=== PATIENT | female | born 1970 | race Caucasian/White ===

== ENCOUNTER 2016-12-09 06:38 | Inpatient (IN) | payer OTHER ==
[~2016-12-09] VITALS: Ht 162.6 cm; Wt 98.9 kg
[2016-12-29] MEDS ORDERED: ARMOUR THYROID60 MG PO (12:10)
--- NOTE | 2017-01-06 10:30 | NUR ---
PT IN BED ALERT, ORIENTED AND SUPPORTED BY MOTHER AND DAUGHTER. PT IS VISIBLY ANXIOUS ABOUT TODAY. WE DISCUSSED AND OUTLINED TODAY FOR HER AND FAMILY. PT REQUESTED PRAYER, WILL FOLLOW NEEDED
--- NOTE | 2017-01-06 12:26 | NUR ---
01/06/17 1226 Ching Jack 1221-PATIENT ARRIVED TO PACU ON 8L MASK O2 [address] 96% PATIENT REACTIVE OPENS EYES AND MOVES HAND. FALLS BACK ASLEEP. ST. 3 TROCAR SITES TO ABDOMEN CDI. PACKING IN VAGINA NO DRAINAGE.
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
--- NOTE | 2017-01-06 13:30 | NUR ---
ASSESSMENT COMP. PT DOZING. OXYGEN IN PLACE. GRAYSON DRAINING TO BEDSIDE BAG.
--- NOTE | 2017-01-06 14:30 | NUR ---
PT SLEEPING DEEPLY, SATS 89-90%. OXYGEN INCREASED TO 3 LITERS NC. SATS INCREASE TO 95-98%. PULSE OX REMAINS IN PLACE.
--- NOTE | 2017-01-06 15:15 | NUR ---
NEW LITER LR STARTED. IV SITE WNL. PT CON TO SLEEP. O2 SATS REMAIN ABOVER 95%
--- NOTE | 2017-01-06 16:00 | NUR ---
VSS. PT C/O VERTIGO. SOPE PATCH IN PLACE. JUDI HOUSTON AND SHIRIN WIGGINS CONTACTED, WILL GIVE MECLAZINE PO. ICE CHIPS PROVIDED UPON REQUEST.
--- NOTE | 2017-01-06 17:30 | NUR ---
PT STILL C/O VERTIGO. EMESIS WHEN SHE MOVED HER HEAD AND BECAME DIZZY. PHENERGAN GIVEN ORDERED. ENC TO TRY AND SLEEP
--- NOTE | 2017-01-06 18:30 | NUR ---
PT RESTS. DENIES NAUSEA UNLESS MOVING EYES/HEAD.
--- NOTE | 2017-01-06 20:58 | NUR ---
PT C/O DIZZINESS WHEN TURNING HEAD TO LEFT SIDE, UNABLE TO DANGLE AT THIS TIME. DENIES C/O PAIN. WAS ABLE TO EAT ICE CREAM.
--- NOTE | 2017-01-06 23:19 | NUR ---
IS given and instructed on use. Pt encouraged to cough and deep breath. voices no need for pain meds at this time.
--- NOTE | 2017-01-07 03:13 | NUR ---
stood at side of bed, tolerated activity well without c/o dizziness. back to bed, scd's replaced. jello given.
--- NOTE | 2017-01-07 05:14 | NUR ---
PT AWAKE STATES HER DIZZINESS IS GONE AND SHE "FEELS PRETTY GOOD" GRAYSON EMPTIED OF 100 ML FRANCISCA URINE. NURSE NOTIFIED OF URINE OUTPUT.
--- NOTE | 2017-01-07 07:35 | NUR ---
PT CARE ASSUMED. PT RESTING IN BED. BOLUS RUNNING INTO RIGHT HAND. PT DENIES PAIN AT THIS TIME.
--- NOTE | 2017-01-07 08:15 | OR ---
[facility] [address], [place] [address] Signed DATE OF PROCEDURE: 01/06/17 PREOPERATIVE DIAGNOSIS: Uterovaginal prolapse complete. POSTOPERATIVE DIAGNOSIS: Uterovaginal prolapse complete. PROCEDURES Total laparoscopic hysterectomy with bilateral salpingectomy, posterior repair and cystoscopy. SURGEON: Corby Grier MD. BUILDING TECH: Dr. Donaldson. ANESTHESIA: General. ESTIMATED BLOOD LOSS: 50 mL. SPECIMEN: Uterus and both fallopian tubes. DRAINS: Higuera to bladder. PACKING: Premarin soaked gauze in vagina. FINDINGS Cervix is closed. Uterus normal in size and shape with grade 2 prolapse. Normal tubes and ovaries bilateral. There were multiple omental adhesions to the anterior abdominal wall, spread out across the anterior abdominal wall, but all of these were above the area of the umbilicus. There was a grade 2 cystocele, minimal urethrocele and a grade 3 rectocele with good perineal body. COMPLICATIONS: None. DESCRIPTION OF PROCEDURE The patient was brought to the operating room, placed supine position. After adequate general anesthesia was obtained, was placed in dorsal lithotomy position, prepped and draped in usual sterile fashion. Higuera catheter was placed in the bladder and a weighted speculum was placed in the vagina and the anterior lip of the cervix grasped with an Allis clamp. Uterine cavity was sounded to 7 cm and cervix serially dilated to #6-Upper Sorbian dilator. The VCare uterine manipulator was then inserted in to the uterine cavity and the balloon filled with water. The Allis clamp was removed and the cervical cap slid up and around the cervix and the vaginal cuff slid up and against the cervical cap and Electronically Signed By: CORBY GRIER MD 01/07/17 0815 PATIENT NAME: RICHARD REY OPERATIVE REPORT DATE OF : 66 PHYSICIAN: CORBY GRIER MD REPORT #: [id number] REPORT IS CONFIDENTIAL AND NOT TO BE RELEASED WITHOUT AUTHORIZATION [facility] [address], [place] [address] to hold the cervical cap against the cervix. The weighted speculum was removed. Attention was then drawn to the abdomen. A small infraumbilical skin incision was made with a scalpel after injecting the area with 0.25% Marcaine with epinephrine. The subcutaneous tissue was dissected with Metzenbaum scissors until the fascia was identified, which was grasped with hemostats, elevated and nicked with Metzenbaum scissors and extended in transverse fashion using Metzenbaum scissors. Retention stitches of 0 Vicryl suture placed above and below the incision and then finger dissection used to open the muscle and peritoneum. The Devin cannula and sleeve entered the abdomen under direct visualization and the sleeve attached to the retention stitches. The blunt trocar was removed and laparoscope entered the abdomen under direct visualization. The above findings were noted. A small skin incision was made on the left side just below the level of the umbilicus after transilluminating the abdominal wall, making sure there were no bowel or pelvic structures in the abdomen in this area and after injecting the area with local anesthetic. A bladed 5 mm trocar and sleeve entered the abdomen under direct visualization. The trocar was r e moved and the blunt probe inserted on the right side again just below the level of the umbilicus. Abdominal wall was transilluminated. The area inside the abdomen was observed and noted to be free of any masses or adhesions and so a small skin incision was made after injecting a local, and a Veress needle with expandable sleeve was inserted into the abdomen under direct visualization. The Veress needle was removed in the 10 mm port with expandable. Trocar was placed through the expandable sleeve by gently stretching and opening the fascia, a 10 mm port was inserted into the abdomen. Trocar was removed and blunt probe inserted here also. The above findings were confirmed. The LigaSure [place] bipolar forceps were then brought in the operating field and the left fallopian tube was grasped, elevated, removed medially and the mesial salpinx cauterized and cut with the LigaSure forceps down the length of the tube and then across the tube removing the tube which was then pulled through the right lateral port. The upper uterine pedicle including the utero-ovarian ligament and the round ligament were cauterized in several places and cut then the broad ligament also cauterized and cut until the anterior and posterior leaves of the broad ligament could be identified. These were then separately cauterized and cut along the side of the uterus extending down to just before the cup, which could be seen through the vaginal wall and extending to the midline. This was done anteriorly and posteriorly exposing the uterine vessels. The vessels were cauterized in several places and cut and the paracervical tissue cauterized and cut freeing the tissue down to the vaginal wall on the left side. The right side was then done in similar fashion by grasping the fallopian tube, removing this medially and then cauterizing and cutting the mesosalpinx down along the length of the tube until the proximal tube could be cauterized and cut and the tube removed. The upper pedicle including the utero-ovarian ligament and round ligament were cauterized in several places and cut and then the anterior posterior leaves of the broad ligament cauterized and cut joining the previous dissection. The uterine vessels exposed Electronically Signed By: CORBY GRIER MD 01/07/17 0815 PATIENT NAME: RICHARD REY OPERATIVE REPORT DATE OF : 66 PHYSICIAN: CORBY GRIER MD REPORT #: [id number] REPORT IS CONFIDENTIAL AND NOT TO BE RELEASED WITHOUT AUTHORIZATION [facility] [address], [place] [address] Signed on this side were then cauterized in several places and cut and the paracervical tissue cauterized and cut. All of this was done inside the area of the cervical cap. With the vaginal wall free, the Sonicision was brought in the operating field and posterior vaginal wall was opened with the Sonicision in the groove of the cervical cap and midline posterior and extended up and around through the groove to the midline anterior. Sonicision was then used from the midline posterior to midline anterior the cervix and uterus. The VCare uterine manipulator and uterus were then pulled through the vaginal opening and sterile glove with lap inside was put in the vagina so that the abdomen could be re-insufflated. The entire pelvis was irrigated, suctioned, examined, and noted to have good hemostasis. The Endo-Stitch was then placed through t h e 10 mm right sleeve, and using barbed suture, the vaginal cuff was closed starting at the right uterosacral ligament and sewing posterior to anterior and sewing the posterior edge of the cuff and the anterior edge of the cuff separately with the 1st pass of the suture placed through the loop in the end of the barbed suture, and after each pass either anterior or posterior, this suture was tightened to help set the barbed to keep the incision closed. This was then carried across the cuff taking care to incorporate the vaginal mucosa, but not to take too much of the anterior or posterior tissue to avoid any bowel or bladder. This continued over to the left uterosacral ligament and then back toward the midline and 2 more stitches to help lock this in place. Laparoscopic suture scissors were then used to cut the stitch right at the tissues so that the barbed suture not be poking a bowel and the Endo-Stitch and needle removed. The entire pelvis was again irrigated, suctioned, examined and noted to have good hemostasis and good closure. At this point, the gas was allowed to escape. All instruments removed. The infraumbilical incision was closed using running stitch of 0 Vicryl suture. Two retention stitches were tied together for further support of the fascia. A finger was placed in the right lower quadrant incision and the fascia noted to be back together so that no stitch was needed in the right lower quadrant fascia. The 3 skin incisions were then closed using subcuticular stitches of 4-0 Vicryl suture. Attention was then drawn to the vagina. The vagina was inspected with elevation of the vaginal cuff and incorporating the uterosacral ligaments. The previous cystoceles seemed to be resolved, no descent. Even grasping the anterior vaginal mucosa and gently pulling did not bring the bladder down, so it was decided that the anterior repair was not necessary at this time, so cystoscopy was done. The patient was given fluorescein IV, Higuera catheter removed, and the cystoscope was placed in the urethra and entered the bladder under direct visualization. The bladder was inspected. No stitches or rents were seen in the bladder. Both ureteral orifices were identified and both showed good ejection of the yellow dye. The posterior bladder was also observed and there did not appear to be any defect or evidence of the cystocele from the bladder side either. At this point, the bladder was drained, cystoscope removed, and the Higuera catheter was placed back in the bladder. Electronically Signed By: CORBY GRIER MD 01/07/17 0815 PATIENT NAME: RICHARD REY OPERATIVE REPORT DATE OF : 66 PHYSICIAN: CORBY GRIER MD REPORT #: [id number] REPORT IS CONFIDENTIAL AND NOT TO BE RELEASED WITHOUT AUTHORIZATION [facility] [address], [place] [address] Signed Digital rectal exam was done and the distal portion of the rectocele identified and Catarina clamp placed in the midline incorporating the vaginal mucosa only at the apex of the rectocele. Two Allis clamps were placed, 1 on each side of the posterior introitus, and scalpel used to cut transverse incision right at the introitus and then perineal skin cut downward to the midportion of the perineal body creating a triangular flap of skin which was removed with Metzenbaum scissors. The midline vaginal mucosa was then underlined with Metzenbaum scissors and opened along the midline, and as this was opened, Allis clamps were used to grasp both edges of the vaginal mucosa. Incision was extended up to the previously placed Catarina clamp, which was then replaced with a long Allis clamp at the apex. Metzenbaum scissors and sponge were used to bluntly and sharply separate the perirectal tissue from the vaginal mucosa on each side. This was taken down on each side. With the vaginal mucosa gently pulled back, interrupted horizontal stitches of 0 Vicryl suture were placed starting at the apex and incorporating the thicker tissue on each side and placing several stitches along the length of the rectocele until reaching the introitus. With all the stitches in place, the stitches were then individually tied again starting at the apex and continuing proximal to the introitus. The vaginal mucosa was then trimmed and a running locking stitch of 2-0 Vicryl suture used to close the vaginal mucosa to the introitus. Two interrupted stitches of 0 Vicryl suture were then used to close the perineal body and the 2-0 Vicryl suture starting at the introitus used to make a subcutaneous stitch down to the apex of the perineal skin removal and then back up subcuticularly up to the introitus where the suture was tied. The vagina was inspected and noted to have good hemostasis, good closure. The rectocele was alleviated and again finger dissection used and there were no stitches or defects noted by palpation and no blood in the rectum. The rectovaginal tissue was thickened and flatter and the rectocele was resolved. At this point, the vagina was packed with Premarin infused gauze. The Higuera catheter left in place. The patient tolerated the procedure well, went to recovery room in good condition. The sponge, needle, instrument count correct in the procedure. Uterus and both fallopian tubes sent to pathology for identification. MD MAXIMUS Vuong/Modl /[id number] Electronically Signed By: CORBY GRIER MD 01/07/17 0815 PATIENT NAME: RICHARD REY OPERATIVE REPORT DATE OF : 66 PHYSICIAN: CORBY GRIER MD REPORT #: [id number] REPORT IS CONFIDENTIAL AND NOT TO BE RELEASED WITHOUT AUTHORIZATION [address] [address] Signed cc: Farshad Juares MD Electronically Signed By: CORBY GRIER MD 01/07/17 0815 PATIENT NAME: RICHARD REY OPERATIVE REPORT DATE OF : 66 PHYSICIAN: CORBY GRIER MD REPORT #: [id number] REPORT IS CONFIDENTIAL AND NOT TO BE RELEASED WITHOUT AUTHORIZATION
--- NOTE | 2017-01-07 09:39 | NUR ---
PATIENT TX FROM [facility] TO MED SURG ROOM 122. REPORT RECEIVED FROM BRAXTON HARPER AND PATIENT W/C TO THE FLOOR AND WAS ABLE TO AMBULATE, PATIENT IS STEADY ON HER FEET WITH NO C/O DIZZINESS OR NAUSEA. VITALS AND ASSESSMENT TAKEN.
--- NOTE | 2017-01-07 11:06 | NUR ---
PATIENT STARTING TO FEEL ABDOMINAL PRESSURE, COUGHED AND FELT LEAKING OF URINE, PATIENT BLADDER SCANNED FOR 80 MLS AT THIS TIME. PAIN AT THIS TIME AT A 4/10 PATIENT DIDN'T WANT TO TAKE PERCOCET DUE TO IT BEEING TOO STRONG SO JUDI CALLED AND ELIS GRESHAM ORDERED. DOCTOR UPDATED ON PATIENT AT THIS TIME.
--- NOTE | 2017-01-07 11:14 | NUR ---
PATIENT WANTED TO TAKE JUST 0.5MG OF A 5/325 NORCO AT THIS TIME. SHE IS SENSITIVE TO MEDICATION AND WANTS JUST PART OF THE TABLET.
--- NOTE | 2017-01-07 12:33 | NUR ---
PATIENT SITTING UP IN BED EATING LUNCH. NO C/O NAUSEA AT THIS TIME. PATIENTS PAIN DOWN TO A 2/10. PATIENT NOT ABLE TO VOID AT THIS TIME, WILL CONTINUE TO FOLLOW.
--- NOTE | 2017-01-07 13:24 | NUR ---
MED REC COMPLETE
--- NOTE | 2017-01-07 13:59 | NUR ---
PATIENT VOIDED 400 MLS OF CLEAR YELLOW URINE, PATIENT BLADDER SCANNED FOR 400 MLS OF URINE, PATIENT HAS NO URGE TO VOID AT THIS TIME.
[2017-01-07] MEDS ORDERED: NORCO 5-325 TA1 EACH PO (15:11)
[2017-01-07] MEDS ORDERED: IBUPROFEN800 MG PO (15:11)
--- NOTE | 2017-01-07 15:23 | NUR ---
PATIENT GIVEN D/C INSTRUCTIONS QUESTIONS ANSWERED AND PHARMACY WAS IN TO SPEAK TO THE PATIENT REGARDING D/C MEDICATION. IV DC'D TIP INTACT.
== END 2017-01-07 15:41 | disposition home or self-care (01) | DRG 743 ==
LOC: MS 01-06 06:45 → DSVR 01-06 07:00 → MS 01-06 08:30 → FBC 01-06 14:33 → MS 01-07 09:25
PROVIDERS: ADMIT General Practice
PROC: 0UT70ZZ Resection of Bilateral Fallopian Tubes, Open Approach (ICD-10-PCS; 2017-01-06)
PROC: 0JQC0ZZ Repair Pelvic Region Subcutaneous Tissue and Fascia, Open Approach (ICD-10-PCS; principal; 2017-01-06 08:30)
PROC: 0UT98ZZ Resection of Uterus, Via Natural or Artificial Opening Endoscopic (ICD-10-PCS; 2017-01-06 08:30)
PROC: 0UTC8ZZ Resection of Cervix, Via Natural or Artificial Opening Endoscopic (ICD-10-PCS; 2017-01-06 08:30)
DX: N81.3 Complete uterovaginal prolapse (principal)
CPT/HCPCS: 00944; 36415; 85027; C2631; J0330; J0690; J1100; J1644; J1885; J2250; J2274; J2405; J2550; J2704; J2765; J3010; J7120

== ENCOUNTER 2018-04-20 14:01 | Day surgery (SDC) | payer OTHER ==
[~2018-04-20] VITALS: Ht 161.3 cm; Wt 101.6 kg
[~2018-04-20 14:01] MED LIST: ARMOUR THYROID60 MG PO; IBUPROFEN800 MG PO; NORCO 5-325 TA1 EACH PO
--- NOTE | 2018-04-20 16:15 | NUR ---
04/20/18 1615 Leora Salmon 1608- PT ARRIVES TO PACU AWAKE, BUT DROWSY WITH EYES CLOSED. PT RESP EVEN AND UNLABORED ON 3 L NC, SATS ABOVE 94%. 1615- PT ENCOURAGED TO PASS FLATUS. PT ABLE TO PASS FLATUS.
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
== END 2018-04-20 16:50 | disposition home or self-care (01) ==
LOC: DS 14:01 → OPS 14:01
PROVIDERS: Surgery
PROC: 0DJD8ZZ Inspection of Lower Intestinal Tract, Via Natural or Artificial Opening Endoscopic (ICD-10-PCS; principal; 2018-04-20 14:00)
DX: K57.30 Diverticulosis of large intestine without perforation or abscess without bleeding (principal); K64.8 Other hemorrhoids; E03.9 Hypothyroidism, unspecified; E66.9 Obesity, unspecified; Z68.39 Body mass index [BMI] 39.0-39.9, adult
CPT/HCPCS: 99153; G0500; J2250; J3010

== ENCOUNTER 2023-12-07 15:05 | Emergency (ER) | payer OTHER ==
[~2023-12-07] VITALS: Ht 161.3 cm; Wt 94.7 kg
[2023-12-07] MEDS ORDERED: TRULICITY1.5 MG/0.5 (20:26)
[2023-12-07 20:28] LABS: BILIRUBIN, URINE NEGATIVE (negative); BLOOD/HGB, URINE TRACE-L (Negative); KETONE, URINE NEGATIVE (Negative); LEUK ESTERASE, URINE SMALL (negative); NITRITE, URINE NEGATIVE (negative)
[2023-12-07 20:35] LABS: EPITHELIAL CELLS, URINE SQUAMOUS 2+ /lpf (0-1+); RED BLOOD CELLS, URINE 0-1 /hpf (0-5)
[2023-12-07 20:36] LABS: BACTERIA, URINE RARE /hpf (negative); CASTS, URINE NONE SEEN \\lpf; COLLECTION TYPE, URINE CLEAN CATCH; CRYSTALS, URINE NONE SEEN (0-1+); REFLEX CULTURE, URINE No (No)
[2023-12-07 20:44] LABS: BASOPHILS 0.8 % (0-2); EOSINOPHILS 1.6 % (0-6); HEMATOCRIT 42.7 % (35.0-50.0); HEMOGLOBIN 14.4 g/dL (12.0-18.0); LYMPHOCYTES 37.8 % (24-44); MCH 30.9 (27-36); MCHC 33.9 g/dl (30-36); MCV 91.3 fl (81-99); MONOCYTES 8.1 % (0-12); NEUTROPHILS 51.7 % (39-80); PLATELET COUNT 269 K/uL (140-440); RBC 4.68 M/ul (4.3-5.7); RDW 12.6 (10.5-15.0)
[2023-12-07 20:57] LABS: ALBUMIN 3.8 g/dL (3.4-5.0); ANION GAP 13.5 (7-21); BILIRUBIN, TOTAL 0.6 ng/dL (0.2-1.0); BUN/CREATININE RATIO 13.39 (6.0-28.6); CALCIUM 9.6 mg/dL (8.5-10.1); CREATININE, SERUM 1.12 mg/dL (0.55-1.02); POTASSIUM 3.5 mmol/L (3.5-5.1); PROTEIN, TOTAL 7.6 g/dL (6.4-8.2)
[2023-12-07] MEDS ORDERED: LACTATED RINGER'S 1,000 ML IV ONE (21:00)
[2023-12-07] MEDS ORDERED: FAMOTIDINE 20 MG/ 2 ML VIAL IV ONE (21:00)
[2023-12-07] MEDS ORDERED: KETOROLAC TROMETHAMINE 30 MG/ML VIAL IV ONE (21:00)
[2023-12-07 22:30] VITALS: BP 129/71
== END 2023-12-07 22:30 | disposition home or self-care (01) ==
LOC: ED 15:05
PROVIDERS: Internal Medicine
DX: R10.32 Left lower quadrant pain (principal); R19.7 Diarrhea, unspecified; Z79.899 Other long term (current) drug therapy; Z88.8 Allergy status to other drugs, medicaments and biological substances
CPT/HCPCS: 36415; 74177; 80053; 81001; 83690; 83735; 84703; 85025; 96375; 99284-25; J1885; J7121; Q9967